=== PATIENT | female | born 1985 | race Caucasian/White ===

== ENCOUNTER 2019-11-05 07:11 | Day surgery (SDC) | payer OTHER, SELFPAY ==
[~2019-11-05] VITALS: Ht 167.6 cm; Wt 90.7 kg
[2019-11-05 07:46] LABS: BASOPHILS % (AUTO) 0.4 % (0.0-2.0); EOSINOPHILS # (AUTO) 0.1 K/uL (0-0.4); EOSINOPHILS % (AUTO) 1.2 % (0.0-4.0); HEMATOCRIT 38.4 % (36-48); LYMPHOCYTES # (AUTO) 2.3 K/uL (2.5-16.5); LYMPHOCYTES % (AUTO) 37.4 % (20.5-51.1); MEAN CORPUSCULAR HEMOGLOBIN 30 pg (27-31); MEAN CORPUSCULAR HGB CONC 34 g/dL (33-37); MEAN CORPUSCULAR VOLUME 87.6 fL (80-94); MONOCYTES # (AUTO) 0.4 K/uL (0.8-1.0); MONOCYTES % (AUTO) 7.3 % (1.7-9.3); NEUTROPHILS # (AUTO) 3.3 K/uL (1.8-7.7); NEUTROPHILS % (AUTO) 53.7 % (42.2-75.2); PLATELET COUNT (AUTO) 264 K/uL (140-450); RED BLOOD CELL COUNT(AUTO) 4.38 MIL/uL (4.20-5.40); RED CELL DISTRIBUTION WIDTH 12.9 % (11.6-13.7); WHITE BLOOD COUNT (AUTO) 6.1 K/uL (4.8-10.8)
[2019-11-05] MEDS ORDERED: GLYCOPYRROLATE 0.2 MG/ML VIAL ONE (08:51)
[2019-11-05] MEDS ORDERED: fentaNYL 0.05 MG/ML VIAL ONE (08:51)
[2019-11-05] MEDS ORDERED: ONDANSETRON 4 MG/2 ML VIAL ONE (08:51)
[2019-11-05] MEDS ORDERED: MIDAZOLAM 2 MG/2 ML VIAL ONE ×2 (08:51)
[2019-11-05] MEDS ORDERED: PROPOFOL 200 MG/20 ML VIAL IV ONE (08:51)
[2019-11-05] MEDS ORDERED: DESFLURANE 240 ML BTL INH ONE (08:51)
[2019-11-05] MEDS ORDERED: DEXAMETHASONE 4 MG/ML VIAL ONE (08:51)
[2019-11-05] MEDS ORDERED: NEOSTIGMINE 1:1000 10 MG/10 ML VIAL ONE (08:51)
[2019-11-05] MEDS ORDERED: KETOROLAC 30 MG/ML VIAL ONE (08:51)
[2019-11-05] MEDS ORDERED: ROCURONIUM 50 MG/5 ML VIAL IV ONE (08:51)
[2019-11-05] MEDS ORDERED: LIDOCAINE 1% 500 MG/50 ML VIAL ONE (08:54)
[2019-11-05] MEDS ORDERED: BUPIVACAINE-MPF/EPI 0.25% 30 ML VIAL INJ ONE (08:54)
[2019-11-05] MEDS ORDERED: LACTATED RINGERS 1,000 ML IV SCH (09:31)
[2019-11-05] MEDS ORDERED: MEPERIDINE 25 MG/ML SYR IVP PRN (09:35)
[2019-11-05] MEDS ORDERED: ONDANSETRON 4 MG/2 ML VIAL IVP PRN (09:35)
[2019-11-05] MEDS ORDERED: diphenhydrAMINE 50 MG/ML VIAL IVP PRN (09:35)
[2019-11-05] MEDS ORDERED: HYDROmorphone 1 MG/ML AMP IVP PRN (09:35)
[2019-11-05] MEDS: HYDROmorphone PFS 2 MG/ML SYR ONE ×2 (10:25→10:35)
== END 2019-11-05 12:00 | disposition home or self-care (01) ==
LOC: MDS 07:11 → MMU 07:13 → MDS 12:00
PROVIDERS: ATTEND Surgery
DX: K80.10 Calculus of gallbladder with chronic cholecystitis without obstruction (principal); E08.621 Diabetes mellitus due to underlying condition with foot ulcer; Z79.899 Other long term (current) drug therapy
CPT/HCPCS: 36415; 47562; 71045; 85025; 87635; 88304; J0690; J1100; J1170; J1885; J2001; J2250; J2405; J2704; J2710; J3010; J3490; J7060; J7120; Q0092